=== PATIENT | female | born 2000 | race Caucasian/White ===

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

== ENCOUNTER → 2020-09-06 | Outpatient (CLI) | payer OTHER, MEDICAID ==
[2020-09-06 18:24] LABS: BASO # 0.1 10^3/uL (0.0-0.2); BASO % 0.9 % (0.0-1.0); EOS # 0.1 10^3/uL (0.0-0.5); EOS % 1.5 % (0.0-3.0); HEMATOCRIT 41.8 % (36.0-47.0); HEMOGLOBIN 13.4 g/dl (12.0-15.5); LYMPH # 3.7 10^3/uL (1.5-5.0); LYMPH % 42.3 % (24.0-44.0); MEAN CORPUSCULAR HEMOGLOBIN 29.2 pg (27.0-33.0); MEAN CORPUSCULAR HGB CONC 32.1 g/dl (32.0-36.5); MEAN CORPUSCULAR VOLUME 91.1 fl (80.0-96.0); MONO # 0.7 10^3/uL (0.0-0.8); MONO % 7.9 % (0.0-5.0); NEUTROPHILS # 4.1 10^3/uL (1.5-8.5); NEUTROPHILS % 47.2 % (36.0-66.0); PLATELET COUNT, AUTOMATED 238 10^3/uL (150-450); RED BLOOD COUNT 4.59 10^6/uL (4.00-5.40); WHITE BLOOD COUNT 8.7 10^3/uL (4.0-10.0)
[2020-09-06 18:36] LABS: ALBUMIN 3.7 GM/DL (3.2-5.2); ALT/SGPT 33 U/L (12-78); BILIRUBIN,TOTAL 0.2 MG/DL (0.2-1.0); BLOOD UREA NITROGEN 9 MG/DL (7-18); CALCIUM LEVEL 9.8 MG/DL (8.5-10.1); CARBON DIOXIDE LEVEL 32 MEQ/L (21-32); CHLORIDE LEVEL 103 MEQ/L (98-107); CHOLESTEROL LEVEL 236 MG/DL (<200); CHOLESTEROL RISK RATIO 4.452 (<5); CREATININE FOR GFR 0.67 MG/DL (0.55-1.30); FREE T4 0.96 NG/DL (0.78-1.33); GLUCOSE, FASTING 94 MG/DL (70-100); HDL CHOLESTEROL 53 MG/DL (>40); LDL CHOLESTEROL 166 MG/DL (<100); NON-HDL-C 183 MG/DL; POTASSIUM SERUM 3.7 MEQ/L (3.5-5.1); SODIUM LEVEL 140 MEQ/L (136-145); TOTAL PROTEIN 6.9 GM/DL (6.4-8.2); TRIGLYCERIDES LEVEL 84 MG/DL (<150)
[2020-09-06 18:37] LABS: TOTAL 25(OH) VITAMIN D 44.6 NG/ML (30.0-100.0)
== END ==
LOC: M PLALAB 13:49
PROVIDERS: ATTEND Physician Assistant
DX: Z00.00 Encounter for general adult medical examination without abnormal findings (principal)

== ENCOUNTER → 2020-12-15 | Outpatient (CLI) | payer OTHER, MEDICAID ==
[2020-12-15 14:41] LABS: CHOLESTEROL RISK RATIO 4.562 (<5)
== END ==
LOC: M PLALAB 10:49
PROVIDERS: ATTEND Physician Assistant
DX: Z00.00 Encounter for general adult medical examination without abnormal findings (principal)

== ENCOUNTER 2021-01-24 13:01 | Emergency (ER) | payer OTHER, MEDICAID ==
[~2021-01-24] VITALS: Ht 152.4 cm; Wt 64.6 kg
[2021-01-24] MEDS ORDERED: CETI-24 (13:13)
[2021-01-24] MEDS ORDERED: LOW-1TAB2 (13:13)
--- NOTE | 2021-01-24 14:16 | REP ---
INDICATION: multiple head injuries COMPARISON: None. TECHNIQUE: Axial noncontrast images from the skull base to the vertex with coronal reformations. This CT examination was performed using the following dose reduction techniques: Automated exposure control, adjustment of mA and/or kv according to the patient's size, and use of iterative reconstruction technique. FINDINGS: The ventricles, sulci, and cisterns are normal in position and appearance. Bhat-white differentiation is maintained. No acute intracranial hemorrhage, mass/mass effect, pathology or trauma/injury. No evidence for acute infarction. No extra-axial fluid collection. Calvarium is intact. Paranasal sinuses and mastoid air cells are clear. IMPRESSION: Normal noncontrast head CT. No evidence for acute intracranial pathology or trauma/injury. <Electronically signed by Jitendra Vigil > 01/24/21 1973
[2021-01-24 15:07] VITALS: BP 142/76
== END 2021-01-24 15:11 | disposition home or self-care (01) ==
LOC: M ED 13:01
DX: S00.03XA Contusion of scalp, initial encounter (principal); S02.5XXA Fracture of tooth (traumatic), initial encounter for closed fracture; W07.XXXA Fall from chair, initial encounter; Y92.9 Unspecified place or not applicable; Y93.9 Activity, unspecified; Y99.9 Unspecified external cause status; F84.0 Autistic disorder; Z79.899 Other long term (current) drug therapy

== ENCOUNTER → 2021-03-12 | Outpatient (CLI) | payer OTHER, MEDICAID ==
[~2021-03-12] MED LIST: CETI-24; LOW-1TAB2
== END ==
LOC: M LABSMTC 11:28
DX: Z11.52 Encounter for screening for COVID-19 (principal)

== ENCOUNTER → 2022-02-16 | Outpatient (CLI) | payer OTHER, MEDICAID | LOC: M PLAIMG 12:54 | PROVIDERS: ATTEND Nurse Practitioner Family | DX: M25.572 Pain in left ankle and joints of left foot (principal) ==